=== PATIENT | male | born 1995 | race Caucasian/White ===

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

== ENCOUNTER 2017-09-01 00:38 | Emergency (ER) | payer SELFPAY ==
[2017-09-01 00:40] VITALS: BP 135/78; PULSE 81; RESP 15; TEMP 98.5; O2SAT 100
== END 2017-09-01 01:36 | disposition left against medical advice (07) ==
LOC: NED 00:38
DX: R07.9 Chest pain, unspecified (principal); Z53.21 Procedure and treatment not carried out due to patient leaving prior to being seen by health care provider
CPT/HCPCS: 99281

== ENCOUNTER 2017-09-26 10:28 | Emergency (ER) | payer OTHER ==
[~2017-09-26] VITALS: Ht 175.3 cm; Wt 75.0 kg
[2017-09-26 10:47] VITALS: BP 150/76; PULSE 75; RESP 16; TEMP 98.4; O2SAT 97
== END 2017-09-26 11:00 | disposition left against medical advice (07) ==
LOC: NED 10:28
DX: Z04.1 Encounter for examination and observation following transport accident (principal)
CPT/HCPCS: 99281

== ENCOUNTER 2017-12-31 18:10 | Emergency (ER) | payer MEDICAID ==
[~2017-12-31] VITALS: Ht 182.9 cm; Wt 68.0 kg
[2017-12-31 18:14] VITALS: BP 138/69; PULSE 63; RESP 18; TEMP 98.3; O2SAT 99
[2017-12-31] MEDS ORDERED: KETOROLAC TROMETHAMINE 30 MG/ML (IVP) VIAL IV PUSH ONE (18:45)
[2017-12-31] MEDS ORDERED: IBUPROFEN 800 MG TAB PO ONE (18:45)
[2017-12-31] MEDS ORDERED: ACETAMINOPHEN/HYDROcodone 325 MG/5 MG TAB PO ONE (18:45)
[2017-12-31 18:57] LABS: AUTOMATED NEUTROPHIL # 5.2 TH/MM3 (1.8-7.7); BASOPHIL # 0.1 TH/MM3 (0-0.2); BASOPHIL % 0.9 % (0.0-2.0); EOSINOPHIL # 0.1 TH/MM3 (0-0.4); HEMATOCRIT 43.7 % (39.0-51.0); HEMOGLOBIN 14.9 GM/DL (13.0-17.0); LYMPH % 28.3 % (9.0-44.0); LYMPHOCYTE # 2.3 TH/MM3 (1.0-4.8); MEAN CELL VOLUME 92.9 FL (80.0-100.0); MEAN CORPUSCULAR HEMOGLOBIN 31.7 PG (27.0-34.0); MEAN CORPUSCULAR HGB CONC 34.2 % (32.0-36.0); MEAN PLATELET VOLUME 7.6 FL (7.0-11.0); MONO % 6.9 % (0.0-8.0); MONOCYTE # 0.6 TH/MM3 (0-0.9); NEUT % 62.9 % (16.0-70.0); PLATELET COUNT 263 TH/MM3 (150-450); RED BLOOD COUNT 4.71 MIL/MM3 (4.50-5.90); RED CELL DISTRIBUTION WIDTH 13.8 % (11.6-17.2); WHITE BLOOD COUNT 8.2 TH/MM3 (4.0-11.0)
[2017-12-31 19:11] LABS: BILIRUBIN, URINE NEG (NEG); BLOOD, URINE NEG (NEG); GLUCOSE,URINE NEG (NEG); KETONE, URINE NEG (NEG); NITRITE,URINE NEG (NEG); PH, URINE 7.5 (5.0-8.5); URINE COLOR LIGHT-YELLOW (YELLW/STRAW); URINE LEUKOCYTE ESTERASE NEG (NEG)
[2017-12-31 19:14] LABS: BICARBONATE 21.2 MEQ/L (21.0-32.0); CALCIUM 8.8 MG/DL (8.5-10.1); CREATININE 0.94 MG/DL (0.60-1.30); MAGNESIUM 1.8 MG/DL (1.5-2.5)
--- NOTE | 2017-12-31 19:55 | PD ---
HPI Chief Complaint: Complaint Time Seen by Provider: 18:37 Travel History International Travel<30 days: No Contact w/Intl Traveler<30days: No Traveled to known affect area: No History of Present Illness HPI 22-year-old male that presents to the ED for evaluation of pain with urine for the past month. Per patient has had this for almost 2 months now. Per patient he went to [facility] where she had workup that essentially showed possible UTI he was given per patient antibiotics. Per patient he finished antibiotics but nothing has improved. Per patient he is apparently out of work because of this and he was given a note for work for this. He is hoping to get a note for this as well as well as some pain management. He denies having seen his primary care doctor. He denies any other medical issues. Per patient he does have some pain in the lower pelvic area. No bowel movement issues. No chest pain or shortness of breath. No allergies to medication. No other medical issues. He denies any STD exposure. PFSH Past Medical History Asthma: Yes Depression: Yes Diminished Hearing: No Past Surgical History Surgical History: No Previous Surgery Other Surgery: Yes (TRAUMATIC TOE AMPUTATION REATTACHMENT ) Social History Alcohol Use: No Tobacco Use: Yes (1/2 ppd) Substance Use: Yes (marijuana) Allergies-Medications (Allergen,Severity, Reaction): Coded Allergies: No Known Allergies (Unverified , 11/03/16) Reported Meds & Prescriptions Reported Meds & Active Scripts Active No Active Prescriptions or Reported Medications Review of Systems Except as stated in HPI: all other systems reviewed are Neg Physical Exam Narrative GENERAL: SKIN: Warm and dry. HEAD: Atraumatic. Normocephalic. EYES: Pupils equal and round. No scleral icterus. No injection or drainage. ENT: No nasal bleeding or discharge. Mucous membranes pink and moist. Tongue is midline. No uvula deviation. NECK: Trachea midline. No JVD. CARDIOVASCULAR: Regular rate and rhythm. No murmurs, S3, S4. RESPIRATORY: No accessory muscle use. Clear to auscultation. Breath sounds equal bilaterally. GASTROINTESTINAL: Abdomen soft, tender to palpation in the lower abdomen, nondistended. Hepatic and splenic margins not palpable. MUSCULOSKELETAL: Extremities without clubbing, cyanosis, or edema. No obvious deformities. Full range of motion of the upper and lower extremities bilaterally. 2+ pulses bilaterally. NEUROLOGICAL: Awake and alert. No obvious cranial nerve deficits. Motor grossly within normal limits. Five out of 5 muscle strength in the arms and legs. Normal speech. PSYCHIATRIC: Appropriate mood and affect; insight and judgment normal. Data Data Last Documented VS Vital Signs Date Time Temp Pulse Resp B/P (MAP) Pulse Ox O2 Delivery O2 Flow Rate FiO2 12/31/17 18:14 98.3 63 18 138/69 (92) 99 Orders Orders Gc And Chlamydia Pcr (12/31/17 18:37) Urinalysis - C+S If Indicated (12/31/17 18:37) Acetamin-Hydrocod 325-5 Mg ([place] 5-325 (12/31/17 18:45) Ibuprofen (Motrin) (12/31/17 18:45) Complete Blood Count With Diff (12/31/17 18:43) Basic Metabolic Panel (Bmp) (12/31/17 18:43) Magnesium (Mg) (12/31/17 18:43) Ct Abd/Pel W Iv Contrast(Rout) (12/31/17 18:43) Ketorolac Inj (Toradol Inj) (12/31/17 18:45) Labs Laboratory Tests Test 12/31/17 18:50 White Blood Count 8.2 TH/MM3 Red Blood Count 4.71 MIL/MM3 Hemoglobin 14.9 GM/DL Hematocrit 43.7 % Mean Corpuscular Volume 92.9 FL Mean Corpuscular Hemoglobin 31.7 PG Mean Corpuscular Hemoglobin Concent 34.2 % Red Cell Distribution Width 13.8 % Platelet Count 263 TH/MM3 Mean Platelet Volume 7.6 FL Neutrophils (%) (Auto) 62.9 % Lymphocytes (%) (Auto) 28.3 % Monocytes (%) (Auto) 6.9 % Eosinophils (%) (Auto) 1.0 % Basophils (%) (Auto) 0.9 % Neutrophils # (Auto) 5.2 TH/MM3 Lymphocytes # (Auto) 2.3 TH/MM3 Monocytes # (Auto) 0.6 TH/MM3 Eosinophils # (Auto) 0.1 TH/MM3 Basophils # (Auto) 0.1 TH/MM3 CBC Comment DIFF FINAL Differential Comment Urine Color LIGHT-YELLOW Urine Turbidity CLEAR Urine pH 7.5 Urine Specific [place] 1.010 Urine Protein NEG mg/dL Urine Glucose (UA) NEG mg/dL Urine Ketones NEG mg/dL Urine Occult Blood NEG Urine Nitrite NEG Urine Bilirubin NEG Urine Urobilinogen LESS THAN 2.0 MG/DL Urine Leukocyte Esterase NEG Urine WBC LESS THAN 1 /hpf Microscopic Urinalysis Comment CULT NOT INDICATED Blood Urea Nitrogen 8 MG/DL Creatinine 0.94 MG/DL Random Glucose 96 MG/DL Calcium Level 8.8 MG/DL Magnesium Level 1.8 MG/DL Sodium Level 139 MEQ/L Potassium Level 3.8 MEQ/L Chloride Level 107 MEQ/L Carbon Dioxide Level 21.2 MEQ/L Anion Gap 11 MEQ/L Estimat Glomerular Filtration Rate 102 ML/MIN MDM Medical Decision Making Medical Screen Exam Complete: Yes Emergency Medical Condition: Yes Medical Record Reviewed: Yes Interpretation(s) CBC & BMP Diagram 12/31/17 18:50 Calcium Level 8.8, Magnesium Level 1.8 UA negative Differential Diagnosis UTI versus cystitis versus acute on chronic pain versus chronic pain versus appendicitis Narrative Course 22-year-old male the presents to the ED for evaluation of lower abdominal pain and possible UTI. Patient was properly examined and was found to have signs and symptoms of unclear etiology. Patient does have some tenderness to palpation of the lower abdomen. Cannot completely rule out any sign of acute disease. The recommend labs and imaging. Patient agree for this. Patient was given IV pain medications as well as p.o. pain medications. Labs did not show any sign of acute disease. No sign of UTI. Urine appears to be clean. CT is still pending but unfortunately before the patient will get the CT scan apparently patient told the nurse that he had to take care of something and he left AMA. Patient was given note to sign by the patient to leave AMA. Unfortunately I could not talk to the patient as I was taking care of another patient at the time. Patient was told about the risk of leaving AMA by ED nurse. AMA: The risks of leaving against medical advice without further evaluation treatment were discussed with the patient. These risks include cardiac dysfunction, cardiac dysrhythmia, possible heart attack, possible stroke or . The patient indicated understanding of these risks and appeared to have the capacity to make this decision. Diagnosis Primary Impression: Left against medical advice Patient Instructions: General Instructions Departure Forms: Work Release, Enter return to work date: Jan 03, 2018 Tests/Procedures Scripts No Active Prescriptions or Reported Meds Disposition: 07 AGAINST MEDICAL ADVICE Condition: Stable Isaac Guillen Dec 31, 2017 19:55
== END 2017-12-31 19:50 | disposition left against medical advice (07) ==
LOC: NEPE 18:10
DX: R10.30 Lower abdominal pain, unspecified (principal); R30.9 Painful micturition, unspecified; Z53.29 Procedure and treatment not carried out because of patient's decision for other reasons; F32.9 Major depressive disorder, single episode, unspecified; J45.909 Unspecified asthma, uncomplicated; F17.210 Nicotine dependence, cigarettes, uncomplicated
CPT/HCPCS: 80048; 81001; 83735; 85025; 87491; 87591; 96374; 99284; J1885